=== PATIENT | male | born 1995 | race Caucasian/White ===

== ENCOUNTER 2018-09-28 20:37 | Emergency (ER) | payer OTHER ==
--- NOTE | 2018-09-28 22:26 | EDM.PDOC ---
ED HPI GENERAL MEDICAL PROBLEM - General Chief Complaint: Head Injury Stated Complaint: HEAD INJURY [id number] Time Seen by Provider: 09/28/18 21:40 Source of Information: Reports: Patient, Family, RN, RN Notes Reviewed History Limitations: Reports: No Limitations - History of Present Illness INITIAL COMMENTS - FREE TEXT/NARRATIVE: Pt to ER with c/o head injury. States he was bending over at work to pick a radio up and hit his head on a forklift that was being raised. No LOC, saw spots and got dizzy. States hx of epilepsy, not taking medications since May. States he smokes marijuana instead and he states this helps more than medications. Admits to blurred vision, headache, dizziness. Denies N/V. He states he has had 3 concussions in the past. Onset: Today, Sudden Duration: Constant Location: Reports: Head Quality: Reports: Ache, Throbbing Severity: Moderate Improves with: Reports: None Worsens with: Reports: None Associated Symptoms: Reports: Headaches, Other (dizziness, blurred vision) Headache Pain Score (Numeric/FACES): 9 - Related Data Allergies Allergy/AdvReac Type Severity Reaction Status Date / Time diazepam [From Valium] Allergy Anxiety Verified 09/28/18 20:57 Home Meds: Home Meds levETIRAcetam [Keppra] 500 mg PO BID 09/28/18 [History] Past Medical History Neurological History: Reports: Concussion, Seizure - Infectious Disease History Infectious Disease History: Reports: Influenza Social & Family History - Tobacco Use Smoking Status *Q: Current Every Day Smoker Years of Tobacco use: 11 Packs/Tins Daily: 0.3 Second Hand Smoke Exposure: Yes - Recreational Drug Use Recreational Drug Use: Yes Drug Use in Last 12 Months: Yes Recreational Drug Type: Reports: Marijuana/Hashish ED ROS GENERAL - Review of Systems Review Of Systems: ROS reveals no pertinent complaints other than HPI. ED EXAM, HEAD INJURY - Physical Exam Exam: See Below Exam Limited By: No Limitations General Appearance: Alert, WD/WN, No Apparent Distress Head: Scalp Swelling, Scalp Abrasions, Scalp Tenderness Nexus Criteria: Painful Distraction Injuries. No: Posterior, Midline Cervical Tenderness, Evidence of Intoxication, Altered Level of Consciousness, Focal Neurological Deficit Eyes: Bilateral Eye: EOMI, Normal Inspection, PERRL (2 brisk), Vision Changes ( blurred vision) Ears: Normal External Exam, Normal Canal, Hearing Grossly Normal, Normal TMs Nose: Normal Inspection, Normal Mucousa, No Blood Throat/Mouth: Normal Inspection, Normal Voice, No Airway Compromise Neck: Non-Tender, Full Range of Motion, Normal Alignment, Normal Inspection Respiratory: No Respiratory Distress, Lungs Clear, Normal Breath Sounds, No Accessory Muscle Use, Chest Non-Tender Cardiovascular: Normal Peripheral Pulses, Regular Rate, Rhythm, No Edema, No Gallop, No JVD, No Murmur, No Rub GI/Abdominal Exam: Normal Bowel Sounds, Soft, Non-Tender (Male) Exam: Deferred Rectal (Males) Exam: Deferred Back Exam: Full Range of Motion, Normal Inspection, NT Extremities: Normal Inspection, Normal Range of Motion, Non-Tender, No Pedal Edema, Normal Capillary Refill Neurologic: No Motor/Sensory Deficits, Alert, Normal Mood/Affect, Oriented x 3 Skin: Normal Color, Warm/Dry - [place] Coma Score Best Eye Response ([place]): (4) Open Spontaneously Best Verbal Response ([place]): (5) Oriented Best Motor Response ([place]): (6) Obeys Commands [place] Total: 15 Course - Vital Signs Last Recorded V/S: Last Vital Signs Temp 98.6 F 09/28/18 20:53 Pulse 86 09/28/18 20:53 Resp 18 09/28/18 20:53 BP 113/69 09/28/18 20:53 Pulse Ox 99 09/28/18 20:53 - Radiology Interpretation Free Text/Narrative:: Head CT: FINDINGS: Brain: No evidence for acute transcortical infarct. No mass effect or midline shift. No extra-axial collection. No acute intracranial hemorrhage. Basal cisterns are patent. Ventricles: Asymmetric sizes of the lateral ventricles, likely congenital. No hydrocephalus. Bones/joints: Unremarkable. No acute fracture. Sinuses: Visualized sinuses are unremarkable. No acute sinusitis. Mastoid air cells: Visualized mastoid air cells are unremarkable. No mastoid effusion. Soft tissues: Unremarkable. IMPRESSION: No acute intracranial hemorrhage or mass effect. See rad report Departure - Departure Time of Disposition: 22:40 Disposition: Home, Self-Care 01 Condition: Fair Clinical Impression: Concussion with no loss of consciousness - Discharge Information *PRESCRIPTION DRUG MONITORING PROGRAM REVIEWED*: No *COPY OF PRESCRIPTION DRUG MONITORING REPORT IN PATIENT DANIS: No Instructions: Concussion, Adult, [id number], Post-Concussion Syndrome, Easy- to-Read, Facial or Scalp Contusion, [id number], Head Injury, Adult, Easy-to- Read Forms: ED Department Discharge Additional Instructions: Off work until cleared by primary care facility Rest in a dark room, no stimulation, no TV, No playing on phone May use Tylenol and/or ibuprofen as directed for pain Return to the ER if any excessive crying, acting different, unable to wake up, vomiting
== END 2018-09-28 22:50 | disposition home or self-care (01) ==
LOC: DL.ED 20:37
DX: S06.0X0A Concussion without loss of consciousness, initial encounter (principal); F17.210 Nicotine dependence, cigarettes, uncomplicated; Z88.8 Allergy status to other drugs, medicaments and biological substances; Z79.899 Other long term (current) drug therapy; W22.8XXA Striking against or struck by other objects, initial encounter
CPT/HCPCS: 70450; 99283-25

== ENCOUNTER 2018-12-08 13:33 | Emergency (ER) | payer OTHER ==
--- NOTE | 2018-12-08 13:28 | EDM.PDOC ---
ED HPI GENERAL MEDICAL PROBLEM - General Chief Complaint: Neurological Problem Stated Complaint: UNKNOWN-AMBULANCE Time Seen by Provider: 12/08/18 13:28 Source of Information: Reports: Patient, EMS, RN, RN Notes Reviewed History Limitations: Reports: No Limitations - History of Present Illness INITIAL COMMENTS - FREE TEXT/NARRATIVE: Pt presents to ER by POV with report that he had 3 witnessed seizures today, each lasting less than 1 to 2 minutes. Pt reports Hx of epilepsy. He recently moved here from [place] and states he ran out of Keppra because it took much longer to get into a neurologist than he had expected. Pt denies any injury from the seizure. He does not think that there was any particular trigger to the seizures today, other than that he may have been dehydrated yesterday. Pt states that he has not taken his Keppra for about 6 months. Onset: Today Duration: Chronic Location: Reports: Generalized Severity: Moderate Improves with: Reports: None Worsens with: Reports: None Associated Symptoms: Reports: No Other Symptoms Generalized Pain Score (Numeric/FACES): 8 - Related Data Allergies Allergy/AdvReac Type Severity Reaction Status Date / Time diazepam [From Valium] Allergy Anxiety Verified 09/28/18 20:57 Home Meds: Home Meds levETIRAcetam [Keppra] 500 mg PO BID 09/28/18 [History] Past Medical History Neurological History: Reports: Concussion, Seizure - Infectious Disease History Infectious Disease History: Reports: Influenza Social & Family History - Family History Family Medical History: Noncontributory - Living Situation & Occupation Living situation: Reports: with Family Occupation: Employed ED ROS GENERAL - Review of Systems Review Of Systems: ROS reveals no pertinent complaints other than HPI. - Physical Exam Exam: See Below Exam Limited By: No Limitations General Appearance: Alert, WD/WN, No Apparent Distress Eye Exam: Bilateral Eye: EOMI, Normal Inspection, PERRL Ears: Normal External Exam, Normal Canal, Hearing Grossly Normal, Normal TMs Nose: Normal Inspection, Normal Mucosa, No Blood Throat/Mouth: Normal Inspection, Normal Lips, Normal Teeth, Normal Gums, Normal Oropharynx, Normal Voice, No Airway Compromise. No: Evidence of Tongue Biting Head Exam: Atraumatic, Normocephalic Neck: Normal Inspection, Supple, Non-Tender, Full Range of Motion Respiratory/Chest: No Respiratory Distress, Lungs Clear, Normal Breath Sounds, No Accessory Muscle Use, Chest Non-Tender Cardiovascular: Normal Peripheral Pulses, Regular Rate, Rhythm, No Edema, No Gallop, No JVD, No Murmur, No Rub GI/Abdominal: Normal Bowel Sounds, Soft, Non-Tender, No Organomegaly, No Distention, No Abnormal Bruit, No Mass Neuro Exam (Abbreviated): Alert, Oriented, CN II-XII Intact, Normal Cognition, Normal Gait, No Motor/Sensory Deficits Back Exam: Normal Inspection, Full Range of Motion, NT Extremities: Normal Inspection, Normal Range of Motion, Non-Tender, No Pedal Edema, Normal Capillary Refill Psychiatric: Normal Affect, Normal Mood Skin Exam: Warm, Dry, Intact, Normal Color, No Rash Course - Vital Signs Last Recorded V/S: Last Vital Signs Temp 97.9 F 12/08/18 13:42 Pulse 75 12/08/18 13:42 Resp 18 12/08/18 13:42 BP 115/66 12/08/18 13:42 Pulse Ox 100 12/08/18 13:42 - Orders/Labs/Meds Orders: Active Orders 24 hr Category Date Time Status Peripheral IV Care [RC] . DIRECTED Care 12/08/18 13:29 Active Sodium Chloride 0.9% [Saline Flush] Med 12/08/18 13:29 Active 10 ml FLUSH ASDIRECTED PRN Peripheral IV Insertion Adult [OM.PC] Stat Oth 12/08/18 13:28 Ordered Seizure Precautions [OM.PC] Routine Oth 12/08/18 13:29 Ordered Medication Orders Sodium Chloride (Saline Flush) 10 ml FLUSH ASDIRECTED PRN PRN Reason: Keep Vein Open Last Admin: 12/08/18 13:52 Dose: 10 ml Labs: Laboratory Tests 12/08/18 12/08/18 12/08/18 Range/Units 13:35 13:35 14:45 WBC 7.1 (5.0-10.0) 10^3/uL RBC 4.90 (4.6-6.2) 10^6/uL Hgb 14.8 (14.0-18.0) g/dL Hct 43.3 (40.0-54.0) % MCV 88.4 (80-100) fL MCH 30.2 (27.0-34.0) pg MCHC 34.2 (33.0-35.0) g/dL Plt Count 238 (150-450) 10^3/uL Neut % (Auto) 53.9 (42.2-75.2) % Lymph % (Auto) 35.9 (20.5-50.1) % [place] % (Auto) 7.2 (2-8) % Eos % (Auto) 2.7 (1.0-3.0) % Baso % (Auto) 0.3 (0.0-1.0) % Sodium 135 (135-145) mmol/L Potassium 4.2 (3.6-5.0) mmol/L Chloride 106 (101-111) mmol/L Carbon Dioxide 21.0 (21.0-31.0) mmol/L Anion Gap 12.2 BUN 19 H (7-18) mg/dL Creatinine 0.8 (0.6-1.3) mg/dL Est Cr Clr Drug Dosing 138.94 mL/min Estimated GFR (MDRD) > 60 BUN/Creatinine Ratio 23.75 Glucose 92 (74-105) mg/dL Calcium 8.8 (8.4-10.2) mg/dl Total Bilirubin 0.9 (0.2-1.0) mg/dL AST 31 (10-42) IU/L ALT 36 (10-60) IU/L Alkaline Phosphatase 52 (42-121) IU/L Total Protein 6.7 (6.7-8.2) g/dl Albumin 4.0 (3.2-5.5) g/dl Globulin 2.7 Albumin/Globulin Ratio 1.48 Urine Color Yellow (YELLOW) Urine Appearance Clear (CLEAR) Urine pH 6.0 (5.0-9.0) Ur Specific [place] 1.020 (1.005-1.030) Urine Protein Negative (NEGATIVE) Urine Glucose (UA) Negative (NEGATIVE) Urine Ketones Negative (NEGATIVE) Urine Occult Blood Negative (NEGATIVE) Urine Nitrite Negative (NEGATIVE) Urine Bilirubin Negative (NEGATIVE) Urine Urobilinogen 0.2 (0.2-1.0) mg/dL Ur Leukocyte Esterase Negative (NEGATIVE) Urine Opiates Screen (NEGATIVE) Ur Oxycodone Screen (NEGATIVE) Urine Methadone Screen (NEGATIVE) Ur Barbiturates Screen (NEGATIVE) U Tricyclic Antidepress (NEGATIVE) Ur Phencyclidine Scrn (NEGATIVE) Ur Amphetamine Screen (NEGATIVE) U Methamphetamines Scrn (NEGATIVE) Urine MDMA Screen (NEGATIVE) U Benzodiazepines Scrn (NEGATIVE) Urine Cocaine Screen (NEGATIVE) U Marijuana (THC) Screen (NEGATIVE) 12/08/18 Range/Units 14:46 WBC (5.0-10.0) 10^3/uL RBC (4.6-6.2) 10^6/uL Hgb (14.0-18.0) g/dL Hct (40.0-54.0) % MCV (80-100) fL MCH (27.0-34.0) pg MCHC (33.0-35.0) g/dL Plt Count (150-450) 10^3/uL Neut % (Auto) (42.2-75.2) % Lymph % (Auto) (20.5-50.1) % [place] % (Auto) (2-8) % Eos % (Auto) (1.0-3.0) % Baso % (Auto) (0.0-1.0) % Sodium (135-145) mmol/L Potassium (3.6-5.0) mmol/L Chloride (101-111) mmol/L Carbon Dioxide (21.0-31.0) mmol/L Anion Gap BUN (7-18) mg/dL Creatinine (0.6-1.3) mg/dL Est Cr Clr Drug Dosing mL/min Estimated GFR (MDRD) BUN/Creatinine Ratio Glucose (74-105) mg/dL Calcium (8.4-10.2) mg/dl Total Bilirubin (0.2-1.0) mg/dL AST (10-42) IU/L ALT (10-60) IU/L Alkaline Phosphatase (42-121) IU/L Total Protein (6.7-8.2) g/dl Albumin (3.2-5.5) g/dl Globulin Albumin/Globulin Ratio Urine Color (YELLOW) Urine Appearance (CLEAR) Urine pH (5.0-9.0) Ur Specific [place] (1.005-1.030) Urine Protein (NEGATIVE) Urine Glucose (UA) (NEGATIVE) Urine Ketones (NEGATIVE) Urine Occult Blood (NEGATIVE) Urine Nitrite (NEGATIVE) Urine Bilirubin (NEGATIVE) Urine Urobilinogen (0.2-1.0) mg/dL Ur Leukocyte Esterase (NEGATIVE) Urine Opiates Screen Negative (NEGATIVE) Ur Oxycodone Screen Negative (NEGATIVE) Urine Methadone Screen Negative (NEGATIVE) Ur Barbiturates Screen Negative (NEGATIVE) U Tricyclic Antidepress Negative (NEGATIVE) Ur Phencyclidine Scrn Negative (NEGATIVE) Ur Amphetamine Screen Negative (NEGATIVE) U Methamphetamines Scrn Negative (NEGATIVE) Urine MDMA Screen Negative (NEGATIVE) U Benzodiazepines Scrn Negative (NEGATIVE) Urine Cocaine Screen Negative (NEGATIVE) U Marijuana (THC) Screen Negative (NEGATIVE) Meds: Medications Generic Name Dose Route Start Last Admin Trade Name Freq PRN Reason Stop Dose Admin Sodium Chloride 10 ml 12/08/18 13:29 12/08/18 13:52 Saline Flush FLUSH 10 ml ASDIRECTED PRN Administration Keep Vein Open Discontinued Medications Generic Name Dose Route Start Last Admin Trade Name Freq PRN Reason Stop Dose Admin Levetiracetam 1,500 mg/ Sodium 115 mls @ 400 mls/hr 12/08/18 13:29 12/08/18 13:52 Chloride IV 12/08/18 13:43 400 mls/hr ONETIME ONE Administration Sodium Chloride 1,000 mls @ 999 mls/hr 12/08/18 13:29 12/08/18 13:52 Normal Saline IV 12/08/18 14:29 999 mls/hr .BOLUS ONE Administration Departure - Departure Time of Disposition: 14:58 Disposition: Home, Self-Care 01 Condition: Good Clinical Impression: Seizure, History of epilepsy, Noncompliance with medications - Discharge Information *PRESCRIPTION DRUG MONITORING PROGRAM REVIEWED*: No *COPY OF PRESCRIPTION DRUG MONITORING REPORT IN PATIENT DANIS: No Instructions: Epilepsy, [id number] Forms: ED Department Discharge Additional Instructions: Rx: Keppra 500mg Follow up in neurology clinic as scheduled. - My Orders Last 24 Hours: My Active Orders 12/08/18 13:28 Peripheral IV Insertion Adult [OM.PC] Stat 12/08/18 13:29 Peripheral IV Care [RC] . DIRECTED Sodium Chloride 0.9% [Saline Flush] 10 ml FLUSH ASDIRECTED PRN Seizure Precautions [OM.PC] Routine - Assessment/Plan Last 24 Hours: My Active Orders 12/08/18 13:28 Peripheral IV Insertion Adult [OM.PC] Stat 12/08/18 13:29 Peripheral IV Care [RC] . DIRECTED Sodium Chloride 0.9% [Saline Flush] 10 ml FLUSH ASDIRECTED PRN Seizure Precautions [OM.PC] Routine
[~2018-12-08 13:33] MED LIST: Sodium Chloride 0.9% 1,000 ML IV ONE; Sodium Chloride 0.9% 10 ML Syringe FLUSH PRN; levETIRAcetam 1,500 MG in Sodium Chloride 0.9% 100 ML IV ONE
[2018-12-08 14:11] LABS: ANION GAP 12.2; CHLORIDE,CL 106 mmol/L (101-111); SODIUM,NA 135 mmol/L (135-145)
== END 2018-12-08 15:05 | disposition home or self-care (01) ==
LOC: DL.ED 13:33
DX: G40.909 Epilepsy, unspecified, not intractable, without status epilepticus (principal); Z88.8 Allergy status to other drugs, medicaments and biological substances; Z79.899 Other long term (current) drug therapy; Z91.19 Patient's noncompliance with other medical treatment and regimen
CPT/HCPCS: 36415; 80053; 80305-QW; 81003; 85025; 96361; 96365; 99283-25; J1953; J7030; J7050